=== PATIENT | female | born 1960 | race African-American/Black ===

== ENCOUNTER 2017-06-07 20:11 | Emergency (ER) | payer OTHER | END 2017-06-07 21:35 | disposition home or self-care (01) | LOC: SCSER 20:11 | DX: M54.41 Lumbago with sciatica, right side (principal); G43.909 Migraine, unspecified, not intractable, without status migrainosus; I10 Essential (primary) hypertension | CPT/HCPCS: 99283 ==

== ENCOUNTER 2018-04-13 15:07 | Emergency (ER) | payer OTHER ==
[2018-04-13] MEDS ORDERED: Ketorolac Tromethamine 30 MG/ML VIAL ONE (15:38)
== END 2018-04-13 15:54 | disposition home or self-care (01) ==
LOC: ERS 15:07
DX: M62.830 Muscle spasm of back (principal); I10 Essential (primary) hypertension
CPT/HCPCS: 96372; J1885

== ENCOUNTER 2018-04-21 11:36 | Outpatient (CLI) | payer OTHER ==
--- NOTE | 2018-04-21 13:01 | MRI ---
MRI RIGHT SHOULDER WITHOUT CONTRAST: HISTORY: M25.511. COMPARISON: None. FINDINGS: There is extensive extraarticular biceps tendon synovial fluid. There is interstitial tearing of the biceps tendon at the intertrabecular groove with the tear extending into the biceps labral anchor. Labrum: There is tearing throughout the superior labrum, extending into the biceps labral anchor. Cartilage: There are full-thickness cartilage fissures of the central glenoid with subchondral react usha marrow changes. Rotator cuff: There is high-grade undersurface partial tearing of the posterior 5 mm of the supraspi natus tendon, extending to the anterior 5 mm of the infraspinatus tendon, approximately 50% to 65% th ickness. There is adjacent delamination with myotendinous junction cysts of the infraspinatus tendon . There is moderate tendinosis of the infraspinatus and supraspinatus tendons. The subscapularis has mild interstitial delamination at the intertrabecular groove. Bones: Type II acromion. No acute fracture. Muscles: Muscle signal and bulk are normal. Soft tissues: There is loss of normal subcoracoid fat. There is fibrosis along the rotator interval . IMPRESSION: 1. Superior labral tear extending into the biceps labral anchor with delamination along the intraart icular tendon. 2. High-grade cartilage fissure of central glenoid with subchondral reactive marrow changes. 3. Extrusion of joint fluid along the biceps tendon sheath with loss of normal subcoracoid fat and f ibrosis along the rotator interval, suggesting capsulitis in the correct clinical setting. 4. There is 50% to 65% undersurface partial tear of the footprint of the posterior 5 mm supraspinatu s tendon and the anterior 5 mm of infraspinatus tendon, with delamination along the infraspinatus ten don, with a myotendinous junction cyst. 5. Small subacromial/subdeltoid bursal effusion. POS: [facility]
== END 2018-04-21 11:37 | disposition home or self-care (01) ==
LOC: MRI 11:36
PROVIDERS: ATTEND Family Medicine
DX: M25.511 Pain in right shoulder (principal); S43.491A Other sprain of right shoulder joint, initial encounter; M25.411 Effusion, right shoulder; M75.111 Incomplete rotator cuff tear or rupture of right shoulder, not specified as traumatic; M25.811 Other specified joint disorders, right shoulder

== ENCOUNTER 2019-05-04 09:36 | Day surgery (SDC) | payer OTHER ==
[2019-05-03 17:31] VITALS: BMI 32.4
[2019-05-04] MEDS ORDERED: PROPOFOL 200 MG/20 ML VIAL ONE (15:04)
--- NOTE | 2019-05-04 19:02 | OP ---
DATE OF PROCEDURE: 05/04/2019 PROCEDURE PERFORMED: Colonoscopy with biopsy. PREPROCEDURE DIAGNOSES: 1. Severe constipation. 2. History of rectal cancer, May 2016, treated with transanal excision. POSTPROCEDURE DIAGNOSES: 1. Exam to cecum; good bowel preparation. 2. Two diminutive sessile polyps in the sigmoid colon, excised with cold biopsy forceps. 3. Mild patchy erythema in the mid rectum, biopsied. 4. No evidence of recurrent neoplasm or polyp in the rectum. 5. Small internal hemorrhoids. ANESTHESIA: Total intravenous anesthesia provided by Dr. Mich Arguello and associates. DESCRIPTION OF PROCEDURE: Written informed consent was obtained. Upon completion of the EGD, the patient was repositioned for the colonoscopy. A digital rectal exam was performed that was unremarkable. A Pentax video colonoscope was inserted through the anal canal and advanced under direct visualization to the cecum. Position in the cecum was verified by clear identification of the appendiceal orifice and the ileocecal valve. The quality of the bowel preparation was good. Each colon segment was examined carefully as the colonoscope was slowly withdrawn from the cecum. Vascular pattern and haustral folds appeared normal. The mucosa was somewhat pale in appearance. Occasional small diverticular orifices were noted in the sigmoid colon. Also in the sigmoid colon, two diminutive sessile polyps, each measuring 2 mm in diameter, were excised with cold biopsy forceps and submitted to pathology. In the rectum, several round to elliptical areas of erythema were noted in the mid rectum without associated ulceration or active bleeding. There was no evidence of tumor recurrence or polyp in the rectum. Biopsies were obtained in the rectum for histology. A retroflexed exam in the rectum demonstrated small internal hemorrhoids that were not actively bleeding. The colon was then decompressed as the colonoscope was removed from the patient. She was transferred to the Day Stay surgery area for postprocedure monitoring. There were no immediate complications. RECOMMENDATIONS: 1. Await biopsy results. 2. Ask the patient to call me in one week for biopsy results. 3. High-fiber low-fat diet. 4. Evaluate response to Linzess 290 mcg daily samples and continue if clinically indicated. 5. Counseled the patient about minimizing narcotic use. 6. Follow up in the office in one month. 7. Repeat colonoscopy in one year. Job ID: [id number]
--- NOTE | 2019-05-04 19:40 | OP ---
DATE OF PROCEDURE: 05/04/2019 PROCEDURE PERFORMED: Esophagogastroduodenoscopy with biopsy. PREPROCEDURE DIAGNOSES: 1. Nausea and vomiting. 2. 10- to 15-pound weight loss over the last 3 months. POSTPROCEDURE DIAGNOSES: 1. Exam to second portion of duodenum. 2. 2 cm sliding hiatal hernia, biopsied. 3. Mild patchy gastric antral erythema, biopsied. 4. Mild patchy duodenitis. 5. No evidence of ulcer or active bleeding. DESCRIPTION OF PROCEDURE: Written informed consent was obtained. The patient was brought to the endoscopy suite. Total intravenous anesthesia was administered by Dr. Mich Arguello and associates. The patient was placed in the left lateral decubitus position. A bite block was inserted into the mouth. The Pentax video diagnostic gastroscope was then introduced into the oral cavity, and the esophagus was carefully intubated. The gastroscope was advanced under direct visualization to the second portion of the duodenum. Endoscopic findings revealed a small sliding hiatal hernia about 2 cm in diameter. Grade A esophagitis was also noted, and biopsies were obtained for histology. The stomach was then entered and carefully examined. This included a retroflex view of the cardia and fundus, which was unremarkable. However, mild patchy erythema was noted in the gastric antrum, not associated with ulcer or active bleeding. Biopsies were obtained for histology. Patchy erythema was also noted in the duodenum from the distal bulb to the second portion, and biopsies were obtained. No duodenal ulcers were seen. The stomach was then decompressed as the endoscope was removed from the patient. She was repositioned for the colonoscopy. RECOMMENDATIONS: 1. Await biopsy results. 2. Ask the patient to call me in one week for biopsy results. 3. Initiate Nexium 40 mg p.o. q.a.m. for the next 6 to 8 weeks. 4. Follow up in GI clinic in one month. Job ID: [id number]
== END 2019-05-04 13:45 | disposition home or self-care (01) ==
LOC: SDC 09:36
PROVIDERS: ATTEND Internal Medicine Gastroenterology
PROC: 0DB68ZX Excision of Stomach, Via Natural or Artificial Opening Endoscopic, Diagnostic (ICD-10-PCS; principal; 2019-05-04)
PROC: 0DB88ZX Excision of Small Intestine, Via Natural or Artificial Opening Endoscopic, Diagnostic (ICD-10-PCS; principal; 2019-05-04)
PROC: 0DB38ZX Excision of Lower Esophagus, Via Natural or Artificial Opening Endoscopic, Diagnostic (ICD-10-PCS; principal; 2019-05-04)
PROC: 0DBN8ZX Excision of Sigmoid Colon, Via Natural or Artificial Opening Endoscopic, Diagnostic (ICD-10-PCS; principal; 2019-05-04)
DX: C21.8 Malignant neoplasm of overlapping sites of rectum, anus and anal canal (principal); K63.5 Polyp of colon; K64.8 Other hemorrhoids; K59.09 Other constipation; K44.9 Diaphragmatic hernia without obstruction or gangrene; K29.50 Unspecified chronic gastritis without bleeding; K29.80 Duodenitis without bleeding; K31.89 Other diseases of stomach and duodenum; Z88.5 Allergy status to narcotic agent
CPT/HCPCS: 88305; 88312; J2704

== ENCOUNTER 2019-08-31 12:19 | Outpatient (CLI) | payer OTHER ==
--- NOTE | 2019-08-31 13:15 | RAD ---
Right hip 2 views Left hip 2 views HISTORY: Bilateral hip pain. FINDINGS: There is mild joint space narrowing, osteophytosis, and subchondral sclerosis involving eac h hip. Femoral head contours are maintained. No acute fracture, dislocation, or aggressive osseous erosions. Rounded calcifications over the central pelvis are consistent with phleboliths in the veins . IMPRESSION: Mild osteoarthritic changes of the hips. No acute osseous abnormalities are demonstrated.
--- NOTE | 2019-08-31 13:59 | RAD ---
LUMBAR SPINE TWO VIEWS: HISTORY: Low back pain. No history of prior injury. The patient states right side hurts worse than left. COMPARISON: 04/25/2011 FINDINGS: There are five [id number] lumbar type vertebral bodies. The vertebral body heights are within no rmal limits. There is minimal narrowing at the L5-S1 intervertebral disk space. Scattered osteophytes are seen in the lumbar spine. There are facet degenerative changes seen in the lower lumbar spine. T here has been no significant interval change compared to the prior study. Surgical clips overly the right upper quadrant. Multiple phleboliths again overly the pelvis. IMPRESSION: Multilevel degenerative changes in the lumbar spine, greatest involving the lower lumbar spine, where there are prominent facet hypertrophic changes as well. POS: [facility]
== END 2019-08-31 12:20 | disposition home or self-care (01) ==
LOC: BICRAD 12:19
PROVIDERS: ATTEND Family Medicine
DX: M47.26 Other spondylosis with radiculopathy, lumbar region (principal); M54.5 Low back pain; M25.551 Pain in right hip; M25.552 Pain in left hip; M16.0 Bilateral primary osteoarthritis of hip
CPT/HCPCS: 72100; 73522

== ENCOUNTER 2019-10-12 07:48 | Outpatient (CLI) | payer OTHER ==
--- NOTE | 2019-10-12 08:54 | MRI ---
MRI lumbar spine noncontrast HISTORY: Low back pain with right leg radiculopathy. FINDINGS: The conus medullaris has normal appearance. Vertebral body heights are maintained. Desiccat ion of all of the intervertebral discs. Very mild discogenic endplate changes within the bone marrow. T12-L1, L1-2: Mild osteophytosis. Central canal is patent. Mild bilateral foraminal stenosis at each level. L2-3: Minimal degenerative spondylolisthesis. Mild diffuse posterior disc bulge and circumferential d egenerative changes. Moderate stenosis of the central canal and each neural foramen. L3-4: Posterior disc bulge and circumferential degenerative changes. Mild stenosis of the central can al. Moderate stenosis of each neural foramen. L4-5: There is 3 mm spondylolisthesis. Very mild posterior pseudobulge of the disc. Circumferential d egenerative changes. Mild to moderate stenosis of the central canal. Severe right and moderate left foraminal stenoses. L5-S1: Minimal disc bulge. Osteophytosis of the facets. Central canal is patent. Severe right and mod erate left foraminal stenoses. IMPRESSION: Multilevel degenerative changes throughout the lumbar spine. Stenoses most severe involvi ng the right neural foramina of the lowest 2 levels. Clinical correlation regarding the right L4 and L5 dermatomes is required.
== END 2019-10-12 07:49 | disposition home or self-care (01) ==
LOC: BICMRI 07:48
PROVIDERS: ATTEND Neurological Surgery
DX: M51.36 Other intervertebral disc degeneration, lumbar region (principal); M48.061 Spinal stenosis, lumbar region without neurogenic claudication; M48.07 Spinal stenosis, lumbosacral region; M47.816 Spondylosis without myelopathy or radiculopathy, lumbar region
CPT/HCPCS: 72148

== ENCOUNTER 2019-11-01 07:26 | Emergency (ER) | payer OTHER ==
[2019-11-01] MEDS ORDERED: HYDROcodone/Acetaminophen 5/325 mg Tablet ONE (08:18)
== END 2019-11-01 08:35 | disposition home or self-care (01) ==
LOC: ERS 07:26
DX: M54.9 Dorsalgia, unspecified (principal); I10 Essential (primary) hypertension
CPT/HCPCS: 99283

== ENCOUNTER 2020-06-04 10:51 | Outpatient (CLI) | payer BC ==
--- NOTE | 2020-06-04 11:58 | RAD ---
Exam: Abdomen 2 views HISTORY: Chronic constipation. Nausea with vomiting. Gastroesophageal reflux disease. FINDINGS: 2 views abdomen: Surgical clips in the right upper quadrant, compatible with previous mastectomy. There are a few air-filled loops of small bowel in the left upper quadrant which are nonspecific. No evidence of small bowel or colon distention. No differential air-fluid levels. No evidence of pneumoperitoneum on the presumed upright projection. No radiographic evidence of significant fecal ma terial in the colon. No acute osseous abnormalities. Multiple phleboliths are noted. IMPRESSION: Nonspecific bowel gas pattern. Transcribed Date/Time: 06/04/2020 12:28 PM
== END 2020-06-04 10:52 | disposition home or self-care (01) ==
LOC: BICRAD 10:51
PROVIDERS: ATTEND Internal Medicine Gastroenterology
DX: K59.09 Other constipation (principal); K21.9 Gastro-esophageal reflux disease without esophagitis; R11.2 Nausea with vomiting, unspecified; R10.30 Lower abdominal pain, unspecified
CPT/HCPCS: 74019

== ENCOUNTER 2020-06-21 10:42 | Inpatient (IN) | payer BC ==
[2020-06-21] MEDS ORDERED: cefOXitin Sodium/Dextrose 2 GM/50 ML BAG ONE (11:52)
[2020-06-21 12:53] LABS: SARS-CoV-2 NAA Rapid Test Not Detected (NotDetected)
[2020-06-21 13:10] LABS: #Basophils 0.1 thou/uL (0.0-0.2); #Eosinphils 0.3 thou/uL (0.0-0.7); #Lymphocytes 3.5 thou/uL (1.20-3.40); #Monocytes 0.5 thou/uL (0.11-0.59); %Basophils 1.7 % (0.0-1.0); %Eosinophils 3.9 % (0.0-10.0); %Lymphocytes 41.3 % (21.0-51.0); %Monocytes 5.9 % (0.0-10.0); %Neutrophils 47.2 % (42.0-75.0); Mean Corpuscular HGB CONC 31.8 g/dL (32.0-36.0); Mean Corpuscular Volume 91.1 fL (78.0-98.0); Mean Platelet Volume 7.7 fL (7.4-10.4); Platelet Count 246 thou/uL (130-400); RBC Distribution Width 13.5 % (11.5-14.5); Red Blood Cell (RBC) Count 4.47 mill/uL (4.20-5.40); White Blood Cell (WBC) Count 8.4 thou/uL (4.8-10.8)
[2020-06-21 13:31] LABS: ALT (SGPT) 8 U/L (8-55); AST (SGOT) 14 U/L (5-34); Albumin 3.8 g/dL (3.5-5.0); Alkaline Phosphatase 67 U/L (40-110); Anion Gap 12 mmol/L (10-20); BUN (Urea Nitrogen) 8 mg/dL (9.8-20.1); Bilirubin, Total 0.4 mg/dL (0.2-1.2); Calc. Creatinine Clearance 0 mL/min (70-130); Calcium 9.4 mg/dL (7.8-10.44); Carbon Dioxide 29 mmol/L (22-29); Chloride 106 mmol/L (98-107); Estimated GFR-MDRD Greater than 90; Globulin 3.3 g/dL (2.4-3.5); Glucose 91 mg/dL (70-105); Potassium 3.8 mmol/L (3.5-5.1); Protein, Total 7.1 g/dL (6.0-8.3); Sodium 143 mmol/L (136-145)
[2020-06-21] MEDS ORDERED: Fentanyl 100 MCG/2 ML VIAL ONE (13:50)
[2020-06-21] MEDS ORDERED: Promethazine HCl 25 MG/ML VIAL IM PRN (15:24)
[2020-06-21] MEDS ORDERED: hydrALAZINE 20 MG/ML VIAL SLOW IVP PRN (15:24)
[2020-06-21] MEDS ORDERED: cefOXitin Sodium/Dextrose,Iso 2 GM in Premix Bag 1 BAG IVPB SCH (15:45)
[2020-06-21] MEDS ORDERED: Morphine 4 MG/ML VIAL ONE (16:56)
[2020-06-21] MEDS ORDERED: Morphine 2 MG/ML VIAL SLOW IVP PRN (16:58)
[2020-06-21 17:07] VITALS: BMI 28.8
[2020-06-21] MEDS: Sodium Chloride 0.9% 1,000 ML IV SCH ×2 (20:28→22:57)
[2020-06-21] MEDS: Famotidine/PF 20 mg/2ml Vial SLOW IVP SCH (21:38)
[2020-06-21] MEDS: Temazepam 15 MG CAP PO PRN (21:39)
[2020-06-21] MEDS: Ondansetron PF 4 MG/2 ML Vial IVP PRN (21:49)
[2020-06-21] MEDS: Morphine 4 MG/ML VIAL SLOW IVP PRN (22:01)
[2020-06-21] MEDS: Famotidine 20 MG TAB PO SCH (22:02)
[2020-06-22] MEDS: Ondansetron PF 4 MG/2 ML Vial IVP PRN ×2 (03:42→19:32)
[2020-06-22] MEDS: Morphine 4 MG/ML VIAL SLOW IVP PRN (03:42)
[2020-06-22] MEDS ORDERED: Fentanyl 100 MCG/2 ML VIAL ONE ×2 (07:40→11:11)
[2020-06-22] MEDS ORDERED: Bupivacaine 0.25% HCL 30 ML VIAL ONE (07:54)
[2020-06-22] MEDS ORDERED: Fentanyl 250 MCG/5 ML VIAL ONE (07:55)
[2020-06-22] MEDS ORDERED: cefOXitin Sodium/Dextrose 2 GM/50 ML BAG ONE (08:00)
[2020-06-22] MEDS: Sodium Chloride 0.9% 1,000 ML IV SCH ×2 (09:24→16:56)
[2020-06-22] MEDS: Famotidine/PF 20 mg/2ml Vial SLOW IVP SCH ×2 (10:19→19:35)
[2020-06-22] MEDS: Famotidine 20 MG TAB PO SCH ×2 (10:19→19:36)
[2020-06-22] MEDS ORDERED: Lidocaine 1% PF 5 ML VIAL ONE (13:08)
[2020-06-22] MEDS ORDERED: Glycopyrrolate 0.2 MG/ML 5 ML SYRINGE ONE (13:08)
[2020-06-22] MEDS ORDERED: Ondansetron PF 4 MG/2 ML Vial ONE (13:08)
[2020-06-22] MEDS ORDERED: Ketorolac Tromethamine 30 MG/ML VIAL ONE (13:08)
[2020-06-22] MEDS ORDERED: PROPOFOL 200 MG/20 ML VIAL ONE (13:08)
[2020-06-22] MEDS ORDERED: Rocuronium Bromide 10 MG/ML (10ML VIAL) ONE (13:08)
[2020-06-22] MEDS ORDERED: Dexamethasone 20 MG/5 ML VIAL ONE (13:08)
[2020-06-22] MEDS: Ketorolac Tromethamine 30 MG/ML VIAL IVP SCH ×3 (13:54→23:22)
[2020-06-22] MEDS ORDERED: HYDROcodone/Acetaminophen 7.5/325 mg Tablet PO PRN (14:52)
[2020-06-22] MEDS: HYDROcodone/Acetaminophen 7.5/325 mg Tablet PO PRN ×2 (14:58→19:37)
[2020-06-22] MEDS: cefOXitin Sodium/Dextrose,Iso 2 GM in Premix Bag 1 BAG IVPB SCH ×2 (16:56→23:23)
[2020-06-22] MEDS: Temazepam 15 MG CAP PO PRN (23:30)
[2020-06-23] MEDS: Sodium Chloride 0.9% 1,000 ML IV SCH ×3 (01:12→18:20)
[2020-06-23] MEDS: Ketorolac Tromethamine 30 MG/ML VIAL IVP SCH ×3 (05:29→18:20)
[2020-06-23] MEDS: HYDROcodone/Acetaminophen 7.5/325 mg Tablet PO PRN ×4 (05:34→18:21)
[2020-06-23] MEDS: Ondansetron PF 4 MG/2 ML Vial IVP PRN (05:34)
[2020-06-23 05:47] LABS: #Basophils 0.1 thou/uL (0.0-0.2); #Lymphocytes 1.8 thou/uL (1.20-3.40); #Monocytes 0.3 thou/uL (0.11-0.59); #Neutrophils 8.6 thou/uL (1.40-6.50); %Basophils 0.5 % (0.0-1.0); %Eosinophils 0.1 % (0.0-10.0); %Lymphocytes 16.9 % (21.0-51.0); %Monocytes 3.2 % (0.0-10.0); %Neutrophils 79.4 % (42.0-75.0); Hemoglobin 11.6 g/dL (12.0-16.0); Mean Corpuscular HGB CONC 32.2 g/dL (32.0-36.0); Mean Corpuscular Hemoglobin 29.2 pg (27.0-31.0); Mean Corpuscular Volume 90.5 fL (78.0-98.0); Mean Platelet Volume 8.2 fL (7.4-10.4); Platelet Count 214 thou/uL (130-400); Red Blood Cell (RBC) Count 3.97 mill/uL (4.20-5.40); White Blood Cell (WBC) Count 10.8 thou/uL (4.8-10.8)
[2020-06-23 06:08] LABS: Anion Gap 13 mmol/L (10-20); BUN (Urea Nitrogen) 9 mg/dL (9.8-20.1); Calc. Creatinine Clearance 112 mL/min (70-130); Calcium 8.4 mg/dL (7.8-10.44); Carbon Dioxide 24 mmol/L (22-29); Chloride 107 mmol/L (98-107); Estimated GFR-MDRD Greater than 90; Glucose 82 mg/dL (70-105); Potassium 3.7 mmol/L (3.5-5.1); Sodium 140 mmol/L (136-145)
[2020-06-23] MEDS: Enoxaparin Sodium 40 MG/0.4 ML SYRINGE SC SCH (09:24)
[2020-06-23] MEDS: Famotidine 20 MG TAB PO SCH ×2 (09:24→20:06)
[2020-06-23] MEDS: Famotidine/PF 20 mg/2ml Vial SLOW IVP SCH ×2 (09:24→20:09)
--- NOTE | 2020-06-23 10:30 | PRG ---
DATE OF SERVICE: 06/23/2020 SUBJECTIVE: Ms. Cornejo feels good today. She has no nausea. She is hungry. She wants her catheter out, so she can be up and around more. OBJECTIVE: VITAL SIGNS: She is afebrile. Vital signs are stable. ABDOMEN: Soft, minimally distended. Wounds are healing well. Ostomy has no stool or air just yet. The ostomy appears viable. ASSESSMENT: Postop day one diverting loop colostomy. PLAN: Try clear liquids, discontinue Webb. Job ID: [id number]
[2020-06-23] MEDS ORDERED: HYDROcodone/Acetaminophen 7.5/325 mg Tablet PO PRN ×2 (10:48)
--- NOTE | 2020-06-23 13:55 | OP ---
DATE OF PROCEDURE: 06/22/2020 PREOPERATIVE DIAGNOSIS: Near obstructing rectal cancer. PROCEDURE PERFORMED: Laparoscopic lysis of adhesions with laparoscopic-assisted loop sigmoid colostomy. INDICATIONS: This is a 60-year-old female, who had a history of rectal cancer treated with transrectal excision 5 years ago, was doing fine until started having symptoms again. Colonoscopy 2 days ago could not bypass an obstructing tumor in the rectum at 10 cm. FINDINGS: Extensive adhesions in the pelvis with making it very difficult to get enough sigmoid colon to bring up through her obese abdominal wall. DESCRIPTION OF PROCEDURE: After informed consent was obtained, the patient was taken to the operating room and given general endotracheal anesthesia. She was placed in supine position. Abdomen was prepped and draped in usual fashion. Local anesthesia was infiltrated subcutaneously and deep as a four quadrant block and the skin in the left lower quadrant was grasped with a Clinton clamp. A circular incision performed utilizing a 15 blade scalpel and then electrocautery used to divide the subcutaneous fat down to the fascia. It was about 3 inches of fat to get down to the fascia. The fascia then was incised in the direction of its fibers. The muscle was spread with Chata clamps. The posterior fascia was incised and the abdomen was explored. Of note, there were some local adhesions. These were lysed. The sigmoid colon was found, but it was tight. There was no redundancy to it, so I tried freeing it up by incising the white line of Toldt superiorly and inferiorly, but could not get enough length. Feeling down into the pelvis, it was socked in. First of all, I placed a small GelPort into the initial circular opening to obstruct it, insufflate the abdomen with carbon dioxide. I placed a 5-mm trocar on the right side, then had to put a 2nd trocar in the right lower quadrant. Laparoscopic lysis of adhesions was then performed utilizing both Metzenbaum scissors and the LigaSure. A third 5-mm port had to be placed in the epigastrium. The colon was just socked in and twisted with the omentum. I had to free up the omentum from the colon, reflect it back. Then in the right lower quadrant, I could not tell if she had a very large sigmoid loop or a large cecum and I did some more lysis of adhesions, hoping that I had a loop that I could bring up, but it turned out to be the cecum, so then I worked back on freeing up the sigmoid colon. There just really was not much redundancy, but did free it up down into the pelvis and then was able to bring up what was hopefully enough to go all the way through her obese abdominal wall. Now at this point, I started wondering if I should bring up a loop transverse colostomy, but that would require another incision and I had already done this, so I decided to try this and it worked. It seemed to work okay. The abdomen was decompressed. The colon was grasped and brought out through the original ostomy opening. It was sutured to the fascia with interrupted 2-0 Vicryl suture. Then, the colon was incised transversely with electrocautery and matured with interrupted 3-0 Vicryl suture circumferentially. A bridge was created to support this to the abdominal wall with the Giancarlo drain, which was sutured to the abdominal wall with 2-0 Prolene suture. The laparoscopic incisions were closed with 4-0 Vicryl Rapide. Dermabond was applied. The wafer and appliance were placed. The mucosa looked healthy and pink. The patient tolerated the procedure well, transferred to Recovery in good condition. Sponge and needle count verified correct x2. Job ID: [id number]
[2020-06-24] MEDS: Ketorolac Tromethamine 30 MG/ML VIAL IVP SCH ×5 (00:12→23:58)
[2020-06-24] MEDS: HYDROcodone/Acetaminophen 7.5/325 mg Tablet PO PRN ×5 (00:12→20:28)
[2020-06-24] MEDS: Temazepam 15 MG CAP PO PRN ×2 (00:53→23:58)
[2020-06-24] MEDS: Sodium Chloride 0.9% 1,000 ML IV SCH ×3 (00:55→18:36)
[2020-06-24] MEDS: Morphine 4 MG/ML VIAL SLOW IVP PRN (08:05)
[2020-06-24] MEDS: Enoxaparin Sodium 40 MG/0.4 ML SYRINGE SC SCH (08:12)
[2020-06-24] MEDS: Famotidine 20 MG TAB PO SCH ×2 (08:14→20:24)
[2020-06-24] MEDS: Famotidine/PF 20 mg/2ml Vial SLOW IVP SCH ×2 (08:14→20:25)
--- NOTE | 2020-06-24 09:51 | PRG ---
DATE OF SERVICE: 06/24/2020 SUBJECTIVE: The patient reports that she is having a lot of pain, it is more so on the right than the left. Really, no nausea, but she has not had much out her ostomy either. She is tolerating clear liquids. OBJECTIVE: VITAL SIGNS: On examination, her temperature is 97.6, pulse 71, and blood pressure 154/87. GENERAL: She is awake, alert. ABDOMEN: Distended. The ostomy is dark. There was some bloody fluid in the bag. Really, no significant gas. ASSESSMENT: Ileus. PLAN: KUB. Check labs. Job ID: [id number]
[2020-06-24 10:24] LABS: #Basophils 0.1 thou/uL (0.0-0.2); #Eosinphils 0.3 thou/uL (0.0-0.7); #Lymphocytes 2.8 thou/uL (1.20-3.40); #Monocytes 0.4 thou/uL (0.11-0.59); #Neutrophils 4.6 thou/uL (1.40-6.50); %Basophils 1.1 % (0.0-1.0); %Eosinophils 3.1 % (0.0-10.0); %Lymphocytes 34.4 % (21.0-51.0); %Monocytes 5.3 % (0.0-10.0); %Neutrophils 56.1 % (42.0-75.0); Hemoglobin 13.3 g/dL (12.0-16.0); Mean Corpuscular HGB CONC 32.4 g/dL (32.0-36.0); Mean Corpuscular Volume 92.5 fL (78.0-98.0); Mean Platelet Volume 8.3 fL (7.4-10.4); Platelet Count 226 thou/uL (130-400); RBC Distribution Width 13.3 % (11.5-14.5); Red Blood Cell (RBC) Count 4.42 mill/uL (4.20-5.40); White Blood Cell (WBC) Count 8.2 thou/uL (4.8-10.8)
[2020-06-24 10:43] LABS: Anion Gap 12 mmol/L (10-20); BUN (Urea Nitrogen) 6 mg/dL (9.8-20.1); Calc. Creatinine Clearance 95 mL/min (70-130); Calcium 8.8 mg/dL (7.8-10.44); Carbon Dioxide 28 mmol/L (22-29); Chloride 107 mmol/L (98-107); Estimated GFR-MDRD 90; Glucose 80 mg/dL (70-105); Potassium 3.5 mmol/L (3.5-5.1); Sodium 143 mmol/L (136-145)
--- NOTE | 2020-06-24 13:07 | RAD ---
SUPINE ABDOMEN: Date: 06/24/2020 INDICATION: Distended abdomen. Postop colostomy. FINDINGS: On this single supine abdomen, there is scattered stool and gas in the colon. Scattered small bowel g as appears unremarkable. No evidence of small bowel obstruction. Ostomy in the left lower quadrant. P ost cholecystectomy clips in the right upper quadrant. IMPRESSION: Nonspecific bowel gas pattern seen on this 1 view exam. POS: [facility]
[2020-06-25] MEDS: Ketorolac Tromethamine 30 MG/ML VIAL IVP SCH ×3 (00:02→12:14)
[2020-06-25] MEDS: Sodium Chloride 0.9% 1,000 ML IV SCH ×3 (02:00→18:38)
[2020-06-25] MEDS: Enoxaparin Sodium 40 MG/0.4 ML SYRINGE SC SCH (09:21)
[2020-06-25] MEDS: HYDROcodone/Acetaminophen 7.5/325 mg Tablet PO PRN ×3 (09:21→21:12)
[2020-06-25] MEDS: Famotidine 20 MG TAB PO SCH ×2 (09:22→21:12)
[2020-06-25] MEDS: Famotidine/PF 20 mg/2ml Vial SLOW IVP SCH ×2 (09:22→22:36)
--- NOTE | 2020-06-25 11:38 | PRG ---
DATE OF SERVICE: 06/25/2020 SUBJECTIVE: She is feeling better. Less pain. She is tolerating clear liquids. OBJECTIVE: VITAL SIGNS: Temperature is 98, pulse 94, blood pressure 156/91. GENERAL: She is awake and alert. ABDOMEN: Soft and nondistended. KUB did not show an obstruction. She put out 250 out her ostomy. The mucosa is looking healthier. ASSESSMENT: Doing well. PLAN: Soft mechanical diet. Discharge tomorrow. Job ID: [id number]
[2020-06-26] MEDS: HYDROcodone/Acetaminophen 7.5/325 mg Tablet PO PRN ×3 (05:27→14:25)
--- NOTE | 2020-06-26 06:54 | EKG ---
Test Reason : PREOP Blood Pressure : / mmHG Vent. Rate : 077 BPM Atrial Rate : 077 BPM P-R Int : 150 ms QRS Dur : 090 ms QT Int : 394 ms P-R-T Axes : 066 063 059 degrees QTc Int : 445 ms Normal sinus rhythm Normal ECG No previous ECGs available Confirmed by DELIA SEBASTIAN MD ([id number] on 06/26/2020 6:54:35 AM Referred By: SRAVAN Confirmed By:DELIA SEBASTIAN MD
[2020-06-26] MEDS: Sodium Chloride 0.9% 1,000 ML IV SCH (09:10)
[2020-06-26] MEDS: Enoxaparin Sodium 40 MG/0.4 ML SYRINGE SC SCH (09:12)
[2020-06-26] MEDS: Famotidine 20 MG TAB PO SCH (09:12)
[2020-06-26] MEDS: Famotidine/PF 20 mg/2ml Vial SLOW IVP SCH (09:13)
[2020-06-26 11:37] VITALS: BP 125/80; TEMP 98.3
--- NOTE | 2020-06-27 05:37 | DIS ---
DATE OF ADMISSION: 06/21/2020 DATE OF DISCHARGE: 06/26/2020 DISCHARGE DIAGNOSIS: Near obstructing rectal cancer. PROCEDURE DURING ADMISSION: Laparoscopic assisted loop diverting sigmoid colostomy. HOSPITAL COURSE: The patient was admitted, taken to the operating room, where she underwent a colostomy placement. Postoperatively, she had a little bit of an ileus, but is now working fine. Pain is controlled on p.o. meds. She is tolerating a regular diet. She is discharged home on hydrocodone and Zofran. She will follow up with me in 2 weeks. Job ID: [id number]
== END 2020-06-26 14:54 | disposition home or self-care (01) | DRG 330 ==
LOC: EDSTATUS 10:43 → EEVIPCON 10:56 → SURG A 10:56
PROVIDERS: ADMIT Surgery; ATTEND Surgery
PROC: 0D1N4Z4 Bypass Sigmoid Colon to Cutaneous, Percutaneous Endoscopic Approach (ICD-10-PCS; principal; 2020-06-22)
DX: C20 Malignant neoplasm of rectum (principal); Z20.828 Contact with and (suspected) exposure to other viral communicable diseases; K56.7 Ileus, unspecified; I10 Essential (primary) hypertension; M54.2 Cervicalgia; M54.9 Dorsalgia, unspecified; G89.29 Other chronic pain; G43.909 Migraine, unspecified, not intractable, without status migrainosus; G47.00 Insomnia, unspecified; Z79.899 Other long term (current) drug therapy; Z98.51 Tubal ligation status; Z90.710 Acquired absence of both cervix and uterus; Z87.891 Personal history of nicotine dependence
CPT/HCPCS: 36415; 74018; 80048; 80053; 82378; 85025; 93005; 93010; J0694; J1100; J1650; J1885; J2270; J2405; J2704; J3010; S0020; S0028; U0002

== ENCOUNTER 2020-06-29 09:33 | Emergency (ER) | payer BC ==
[2020-06-29] MEDS ORDERED: Morphine 4 MG/ML VIAL ONE ×2 (10:01→11:35)
[2020-06-29] MEDS ORDERED: Ondansetron PF 4 MG/2 ML Vial ONE (10:02)
[2020-06-29 10:32] LABS: #Eosinphils 0.4 thou/uL (0.0-0.7); #Lymphocytes 1.6 thou/uL (1.20-3.40); #Monocytes 0.6 thou/uL (0.11-0.59); #Neutrophils 7.8 thou/uL (1.40-6.50); %Basophils 0.4 % (0.0-1.0); %Eosinophils 3.9 % (0.0-10.0); %Lymphocytes 15.3 % (21.0-51.0); %Monocytes 5.8 % (0.0-10.0); %Neutrophils 74.7 % (42.0-75.0); Hemoglobin 12.9 g/dL (12.0-16.0); Mean Corpuscular HGB CONC 32.2 g/dL (32.0-36.0); Mean Corpuscular Hemoglobin 29.1 pg (27.0-31.0); Mean Corpuscular Volume 90.3 fL (78.0-98.0); Mean Platelet Volume 7.6 fL (7.4-10.4); Platelet Count 286 thou/uL (130-400); RBC Distribution Width 13.2 % (11.5-14.5); Red Blood Cell (RBC) Count 4.45 mill/uL (4.20-5.40); White Blood Cell (WBC) Count 10.5 thou/uL (4.8-10.8)
[2020-06-29 10:57] LABS: ALT (SGPT) 42 U/L (8-55); AST (SGOT) 34 U/L (5-34); Albumin 3.3 g/dL (3.5-5.0); Alkaline Phosphatase 76 U/L (40-110); Anion Gap 16 mmol/L (10-20); BUN (Urea Nitrogen) 11 mg/dL (9.8-20.1); Bilirubin, Total 0.5 mg/dL (0.2-1.2); Calc. Creatinine Clearance 0 mL/min (70-130); Calcium 9.4 mg/dL (7.8-10.44); Carbon Dioxide 26 mmol/L (22-29); Chloride 101 mmol/L (98-107); Estimated GFR-MDRD 57; Glucose 94 mg/dL (70-105); Lipase 5 U/L (8-78); Potassium 3.9 mmol/L (3.5-5.1); Protein, Total 7.3 g/dL (6.0-8.3); Sodium 139 mmol/L (136-145)
--- NOTE | 2020-06-29 12:54 | CT ---
CT abdomen and pelvis with IV and oral contrast HISTORY: Abdomen pain. Recent surgery with colostomy. Vomiting. COMPARISON: 06/17/2020 and 04/30/2019. FINDINGS: Minimal nonspecific atelectasis is present at each lung base. Small amount of reflux of ora l contrast into the lower esophagus. Gallbladder surgically absent. Small amount of fluid throughout the abdomen and pelvis is likely rela gumaro to recent surgery. Incidental note of a retroaortic left renal vein. Small amount of gas within the urinary bladder likely related to recent instrumentation. The heteroge neous centrally low density mass just to the left of the rectum is again demonstrated, measuring 5.0 cm x 3.5 cm greatest diameters on today's exam. A new left lower quadrant colostomy is present wi thout evidence of complication. Large amount of stool is present within the right colon. Within the left mid abdomen, a contiguous loop of jejunum shows subtle circumferential wall thickenin g. No obstruction. IMPRESSION : Recent postoperative changes, including left lower quadrant colostomy. No evidence of complication. Constipation. Short segment of mild inflamed appearance of jejunum near the area of recent surgery. No evidence of complication. Stable left lower pelvic mass adjacent to the rectum.
[2020-06-29] MEDS ORDERED: Iopamidol-370 76% 500 ML 1 ML ONE (15:31)
[2020-06-29] MEDS ORDERED: Iopamidol 370 76% 50 ML VIAL FS ONE (15:31)
== END 2020-06-29 14:01 | disposition home or self-care (01) ==
LOC: EEVIPCON 09:33 → ERS 09:33
DX: K59.00 Constipation, unspecified (principal); I10 Essential (primary) hypertension
CPT/HCPCS: 74177; 80053; 83690; 85025; 96361; 96374; 96375; 96376; J2270; J2405; Q9967

== ENCOUNTER 2020-10-15 14:48 | Outpatient (CLI) | payer OTHER ==
[2020-10-15 16:03] LABS: #Eosinphils 0.1 10x3/uL (0.0-0.5); #Monocytes 0.4 10x3/uL (0.0-1.1); #Neutrophils 2.6 10x3/uL (1.5-8.4); %Basophils 0.8 % (0.0-2.0); %Eosinophils 3.3 % (0.0-6.0); %Lymphocytes 21.6 % (18.0-47.0); %Monocytes 9.5 % (0.0-10.0); %Neutrophils 64.3 % (40.0-75.0); Hemoglobin 12.5 g/dL (12.0-15.5); Mean Corpuscular Hemoglobin 29.6 pg (27.0-33.0); Mean Corpuscular Volume 92.4 fl (81.6-98.3); Mean Platelet Volume 9.7 fl (7.4-10.4); Platelet Count 228 10x3/uL (150-450); RBC Distribution Width 17.2 % (11.5-14.5); Red Blood Cell (RBC) Count 4.23 10x6/uL (3.90-5.03)
[2020-10-15 16:17] LABS: Anion Gap 12 mmol/L (10-20); BUN (Urea Nitrogen) 8 mg/dL (9.8-20.1); Calc. Creatinine Clearance 0 mL/min (70-130); Calcium 9.6 mg/dL (7.8-10.44); Carbon Dioxide 27 mmol/L (22-29); Chloride 105 mmol/L (98-107); Glucose 89 mg/dL (70-105); Potassium 3.7 mmol/L (3.5-5.1); Sodium 140 mmol/L (136-145)
[2020-10-16 06:46] LABS: SARS-CoV-2 PCR by NAA Not Detected (NotDetected)
== END 2020-10-15 14:49 | disposition home or self-care (01) ==
LOC: LABBT 14:48
PROVIDERS: ATTEND Urology
DX: Z01.812 Encounter for preprocedural laboratory examination (principal); Z20.822 Contact with and (suspected) exposure to COVID-19
CPT/HCPCS: 80048; 85025; 87635; U0003; U0005

== ENCOUNTER 2020-10-18 07:57 | Day surgery (SDC) | payer OTHER ==
[2020-10-17 11:03] VITALS: BMI 29.2
[2020-10-18] MEDS ORDERED: XYLOCAINE 2%-EPI 1:100,000 20 ML VIAL ONE (09:44)
[2020-10-18] MEDS ORDERED: Bupivacaine 0.25% HCL 30 ML VIAL ONE (09:44)
[2020-10-18] MEDS ORDERED: Propofol 500 MG/50 ML VIAL ONE (10:41)
[2020-10-18] MEDS ORDERED: Fentanyl 100 MCG/2 ML VIAL ONE (10:41)
[2020-10-18] MEDS ORDERED: Ondansetron PF 4 MG/2 ML Vial ONE (11:02)
[2020-10-18] MEDS ORDERED: HYDROcodone/Acetaminophen 5/325 mg Tablet ONE (12:56)
== END 2020-10-18 13:15 | disposition home or self-care (01) ==
LOC: SDC 07:57
PROVIDERS: ATTEND Surgery
PROC: 02HV33Z Insertion of Infusion Device into Superior Vena Cava, Percutaneous Approach (ICD-10-PCS; principal; 2020-10-18)
DX: C20 Malignant neoplasm of rectum (principal); C79.9 Secondary malignant neoplasm of unspecified site; I10 Essential (primary) hypertension
CPT/HCPCS: 71045; 93005; 93010; C1788; J0690; J1642; J2405; J2704; J3010; S0020

== ENCOUNTER 2021-04-23 08:48 | Emergency (ER) | payer OTHER ==
[2021-04-23 09:41] LABS: #Basophils 0.1 thou/uL (0.0-0.2); #Eosinphils 0.2 thou/uL (0.0-0.7); #Lymphocytes 1.2 thou/uL (1.20-3.40); #Monocytes 0.5 thou/uL (0.11-0.59); #Neutrophils 3.6 thou/uL (1.40-6.50); %Lymphocytes 21.7 % (21.0-51.0); %Monocytes 8.3 % (0.0-10.0); %Neutrophils 65.9 % (42.0-75.0); Hemoglobin 13.7 g/dL (12.0-16.0); Mean Corpuscular HGB CONC 31.9 g/dL (32.0-36.0); Mean Corpuscular Hemoglobin 30.6 pg (27.0-31.0); Mean Platelet Volume 7.2 fL (7.4-10.4); Platelet Count 222 thou/uL (130-400); RBC Distribution Width 12.9 % (11.5-14.5); Red Blood Cell (RBC) Count 4.47 mill/uL (4.20-5.40); White Blood Cell (WBC) Count 5.5 thou/uL (4.8-10.8)
[2021-04-23 10:01] LABS: ALT (SGPT) 14 U/L (8-55); AST (SGOT) 18 U/L (5-34); Albumin 3.8 g/dL (3.5-5.0); Alkaline Phosphatase 92 U/L (40-110); Anion Gap 11 mmol/L (10-20); BUN (Urea Nitrogen) 9 mg/dL (9.8-20.1); Bilirubin, Total 0.5 mg/dL (0.2-1.2); Calc. Creatinine Clearance 0 mL/min (70-130); Calcium 9.4 mg/dL (7.8-10.44); Carbon Dioxide 28 mmol/L (22-29); Chloride 107 mmol/L (98-107); Globulin 3.2 g/dL (2.4-3.5); Glucose 97 mg/dL (70-105); Lipase 23 U/L (8-78); Potassium 3.9 mmol/L (3.5-5.1); Sodium 142 mmol/L (136-145)
[2021-04-23] MEDS ORDERED: Morphine 4 MG/ML VIAL ONE (10:06)
[2021-04-23] MEDS ORDERED: Ondansetron PF 4 MG/2 ML Vial ONE (10:06)
[2021-04-23] MEDS ORDERED: Iopamidol-370 76% 500 ML 1 ML ONE (10:53)
[2021-04-23] MEDS ORDERED: Iopamidol 370 76% 50 ML VIAL FS ONE (10:53)
[2021-04-23 12:25] LABS: Bacteria/HPF None Seen HPF (None Seen); Bilirubin Negative (Negative); Blood, Urine Negative (Negative); Clarity Clear (Clear); Glucose, Urine (Dipstick) Normal (Negative); Ketone, Urine Negative (Negative); Leukocyte 25 Leu/uL (Negative); Nitrite Negative (Negative); Protein, Urine (Dipstick) Negative (Neg-Trace); RBC/HPF 0-3 HPF (0-3); Specific Gravity, Urine 1.021 (1.002-1.036); Squamous Epithelial 0-3 HPF (0-3); Urobilinogen Normal mg/dL (Less than 2)
[2021-04-23] MEDS ORDERED: Ketorolac Tromethamine 30 MG/ML VIAL ONE (13:53)
[2021-04-23] MEDS ORDERED: Acetaminophen 500 MG TAB ONE (13:53)
== END 2021-04-23 13:50 | disposition home or self-care (01) ==
LOC: ERS 08:48
DX: R10.9 Unspecified abdominal pain (principal); R11.0 Nausea; I10 Essential (primary) hypertension
CPT/HCPCS: 36415; 74177; 80053; 81003; 81015; 83690; 84484; 85025; 93005; 94760; 96374; 96375; J1885; J2270; J2405; Q9967

== ENCOUNTER 2021-06-03 14:35 | Emergency (ER) | payer OTHER ==
[~2021-06-03 14:35] MED LIST: Iopamidol-370 76% 500 ML 1 ML ONE
[2021-06-03 15:28] LABS: #Eosinphils 0.2 thou/uL (0.0-0.7); #Lymphocytes 1.4 thou/uL (1.20-3.40); #Monocytes 0.7 thou/uL (0.11-0.59); #Neutrophils 7.8 thou/uL (1.40-6.50); %Basophils 0.3 % (0.0-1.0); %Eosinophils 1.8 % (0.0-10.0); %Lymphocytes 13.4 % (21.0-51.0); %Monocytes 7.1 % (0.0-10.0); %Neutrophils 77.4 % (42.0-75.0); Mean Corpuscular HGB CONC 33.1 g/dL (32.0-36.0); Mean Corpuscular Volume 90.7 fL (78.0-98.0); Mean Platelet Volume 6.5 fL (7.4-10.4); Platelet Count 450 thou/uL (130-400); RBC Distribution Width 13.7 % (11.5-14.5); Red Blood Cell (RBC) Count 3.66 mill/uL (4.20-5.40); White Blood Cell (WBC) Count 10.1 thou/uL (4.8-10.8)
[2021-06-03 15:49] LABS: ALT (SGPT) 27 U/L (8-55); AST (SGOT) 24 U/L (5-34); Albumin 3.8 g/dL (3.5-5.0); Alkaline Phosphatase 119 U/L (40-110); Anion Gap 13 mmol/L (10-20); BUN (Urea Nitrogen) 7 mg/dL (9.8-20.1); Bilirubin, Total 0.6 mg/dL (0.2-1.2); Calc. Creatinine Clearance 0 mL/min (70-130); Calcium 9.3 mg/dL (7.8-10.44); Carbon Dioxide 27 mmol/L (22-29); Chloride 99 mmol/L (98-107); Globulin 4.1 g/dL (2.4-3.5); Glucose 91 mg/dL (70-105); Potassium 3.6 mmol/L (3.5-5.1); Protein, Total 7.9 g/dL (6.0-8.3); Sodium 135 mmol/L (136-145)
[2021-06-03] MEDS ORDERED: Fentanyl 100 MCG/2 ML VIAL ONE (16:56)
[2021-06-03] MEDS ORDERED: Piperacillin/Tazobactam 4.5 GM in Sodium Chloride 0.9% 100 ML IVPB SCH (18:45)
[2021-06-03] MEDS ORDERED: Morphine 4 MG/ML VIAL ONE (20:13)
[2021-06-03] MEDS ORDERED: Ondansetron PF 4 MG/2 ML Vial ONE (20:13)
== END 2021-06-03 20:27 | disposition short-term general hospital (02) ==
LOC: ERS 14:35
DX: K65.1 Peritoneal abscess (principal); C18.9 Malignant neoplasm of colon, unspecified; I10 Essential (primary) hypertension
CPT/HCPCS: 36415; 74177; 80053; 83605; 83690; 85025; 87040; 94760; 96365; 96366; 96375; J2270; J2405; J2543; J3010; J3370; J3490; Q9967

== ENCOUNTER 2021-07-18 09:36 | Outpatient (CLI) | payer OTHER | END 2021-07-18 09:37 | disposition home or self-care (01) | LOC: PET 09:36 | PROVIDERS: ATTEND Internal Medicine Medical Oncology | DX: C20 Malignant neoplasm of rectum (principal) | CPT/HCPCS: 78815; A9552 ==

== ENCOUNTER 2023-10-01 18:37 | Emergency (ER) | payer OTHER ==
[2023-10-01 19:50] LABS: #Eosinphils 0.2 thou/uL (0.0-0.7); #Monocytes 0.4 thou/uL (0.11-0.59); #Neutrophils 4.6 thou/uL (1.40-6.50); %Basophils 0.5 % (0.0-1.0); %Eosinophils 2.8 % (0.0-10.0); %Monocytes 6.3 % (0.0-10.0); %Neutrophils 71.1 % (42.0-75.0); Hematocrit 42.2 % (36.0-47.0); Hemoglobin 13.3 g/dL (12.0-16.0); Mean Corpuscular HGB CONC 31.5 g/dL (32.0-36.0); Mean Corpuscular Hemoglobin 27.1 pg (27.0-31.0); Mean Corpuscular Volume 85.9 fl (78.0-98.0); Mean Platelet Volume 9.2 fL (7.4-10.4); Platelet Count 284 10x3/uL (130-400); RBC Distribution Width 17.5 % (11.5-14.5); Red Blood Cell (RBC) Count 4.91 mill/uL (4.20-5.40); White Blood Cell (WBC) Count 6.5 10x3/uL (4.8-10.8)
[2023-10-01] MEDS ORDERED: Ondansetron PF 4 MG/2 ML Vial ONE (19:58)
[2023-10-01] MEDS ORDERED: Morphine 4 MG/ML VIAL ONE ×2 (19:58→21:58)
[2023-10-01] MEDS ORDERED: Ketorolac Tromethamine 30 MG (1 mL) VIAL ONE (19:58)
[2023-10-01 20:07] LABS: PTT 29.6 sec (22.9-36.1); Prothrombin Time 13.5 sec (12.0-14.7)
[2023-10-01 20:18] LABS: ALT (SGPT) 14 U/L (8-55); AST (SGOT) 26 U/L (5-34); Albumin 3.8 g/dL (3.4-4.8); Alkaline Phosphatase 83 U/L (40-110); Anion Gap 13 mmol/L (10-20); BUN (Urea Nitrogen) 12 mg/dL (9.8-20.1); Bilirubin, Total 0.5 mg/dL (0.2-1.2); Calc. Creatinine Clearance 0 mL/min (70-130); Carbon Dioxide 30 mmol/L (23-31); Chloride 104 mmol/L (98-107); Estimated GFR 49; Globulin 4.7 g/dL (2.4-3.5); Glucose 103 mg/dL (80-115); Lipase Less than 4 U/L (8-78); Potassium 3.7 mmol/L (3.5-5.1); Protein, Total 8.5 g/dL (5.8-8.1); Sodium 143 mmol/L (136-145)
[2023-10-01] MEDS ORDERED: Dicyclomine 20 MG/2 ML VIAL ONE (21:58)
[2023-10-02 00:57] LABS: Bacteria/HPF None Seen HPF (None Seen); Bilirubin Negative (Negative); Blood, Urine Negative (Negative); CAUTI Indications for Culture Urological Procedure; Clarity Clear (Clear); Glucose, Urine (Dipstick) Normal (Negative); Ketone, Urine Negative (Negative); Leukocyte Negative Leu/uL (Negative); Nitrite Negative (Negative); Protein, Urine (Dipstick) 50 mg/dL (Neg-Trace); RBC/HPF None Seen HPF (0-3); Specific Gravity, Urine 1.011 (1.002-1.036); Squamous Epithelial None Seen HPF (0-3); Urobilinogen Normal mg/dL (Less than 2); pH, Urine 6.5 (5.0-9.0)
[2023-10-02 00:59] LABS: Urine Culture Reflex Yes Yes
== END 2023-10-02 00:30 | disposition home or self-care (01) ==
LOC: ERS 18:37
DX: N39.490 Overflow incontinence (principal); C76.2 Malignant neoplasm of abdomen; I10 Essential (primary) hypertension
CPT/HCPCS: 51702; 74177; 80053; 81001; 83605; 83690; 83880; 85025; 85610; 85730; 87086; 96372; 96374; 96375; 96376; J1885; J2270; J2405